=== PATIENT | male | born 1995 | race American Indian/Alaskan Native ===

== ENCOUNTER 2018-11-15 02:48 | Emergency (ER) | payer SELFPAY ==
[2018-11-15 02:58] VITALS: BP 111/75
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
[2018-11-15] MEDS ORDERED: PERCOCET 5/325 PO STA (04:01)
== END 2018-11-15 04:35 | disposition home or self-care (01) ==
LOC: ED 02:48
DX: S60.221A Contusion of right hand, initial encounter (principal); F17.200 Nicotine dependence, unspecified, uncomplicated; W18.09XA Striking against other object with subsequent fall, initial encounter; Y93.89 Activity, other specified; Y92.89 Other specified places as the place of occurrence of the external cause; Y99.8 Other external cause status
CPT/HCPCS: 29260